=== PATIENT | female | born 1990 | race Caucasian/White ===

== ENCOUNTER 2018-03-14 05:25 | Inpatient (IN) | payer OTHER ==
[2018-03-14] MEDS ORDERED: CITRIC ACID/SODIUM CITRATE 30 ML UNIT-DOSE CUP PO ONE (05:30)
[2018-03-14] MEDS ORDERED: ELECTROLYTE-148 SOLN 500 ML IV ONE (05:30)
[2018-03-14] MEDS ORDERED: ELECTROLYTE-148 SOLN 1,000 ML IV SCH (06:00)
[2018-03-14 06:12] VITALS: BMI 27.8
[2018-03-14] MEDS ORDERED: OXYTOCIN 20 UNITS in 0.9% NS 40 UNIT/2,000 ML INFUS.BAG IV ONE (07:32)
--- NOTE | 2018-03-14 07:34 | HP ---
History & Physical Update - History History: Change (see notes) (27 yrs , 37.4/7 weeks by sono , 38 weeks by dates , previous c/section with Mild cholestasis ( 35 bile acids) , recommended delivery by [facility] Hence pt is admitted for repeat c/sectio) - Physical Physical: No Change - Assessment Assessment: No Change - Plan Plan: No Change Currently as noted:: Repeat LFTC?section 03/14/18
[2018-03-14] MEDS ORDERED: morphine SULFATE/Preservative Free 0.5 MG/ML (1cc Syringe) ONE (07:50)
[2018-03-14] MEDS ORDERED: BUPIVACAINE 0.75% IN DEXTROSE/PF 2ML AMPULE NR ONE (07:51)
[2018-03-14] MEDS ORDERED: OXYTOCIN 10 UNITS/ML VIAL ONE (08:55)
[2018-03-14] MEDS ORDERED: ceFAZolin SODIUM 1 GM VIAL ONE ×2 (08:55→15:58)
[2018-03-14] MEDS ORDERED: ONDANSETRON 4 MG/2 ML VIAL ONE (09:05)
--- NOTE | 2018-03-14 09:08 | PN ---
Delivery - Delivery Section: Repeat, Low Flap Transverse (37.4 weeks, previous c/section , cholestasis of ) Type of Anesthesia: Spinal Episiotomy/Laceration: None EBL (cc): 500 (mitchell output 100 ml ) Delivery, Single - Stages of Labor Date of Delivery: 03/14/18 Time of Delivery: 08:15 Time Placenta Delivered: 08:16 Placenta: Yes: Expressed, Uterine Exploration - Condition of Infant Telephone Services Sales Representative/Stained Glass Glazier Present: Yes Name: Nabor Lange Infant Gender: Female Weight: 5 lb 13 oz Position: Left (cord around body), OT Total Hours ROM (Hrs/Mins): 0/2 - 1 Minute Total Score: 9 5 Minutes Total Score: 9 - [place] Feeding Plan Initial Plan: Elected not to breastfeed exclusively throughout hospitalization Remarks - Remarks Remarks: 27 yrs , 37.4/7 weeks , previous c/section was recommended delivery by M due to cholestasis of ( bile acids 35 ) . PNC at , [facility] gbs neg . Intraop course uneventful
[2018-03-14 09:09] LABS: ARTERIAL BLD GAS O2 SATURATION 16.5 % (90-98.9); ARTERIAL BLOOD GAS BASE EXCESS 0.1 meq/l (-2-2); ARTERIAL BLOOD GAS PCO2 61.3 mmHg (35-45); ARTERIAL BLOOD GAS pH 7.28 (7.35-7.45)
[2018-03-14] MEDS ORDERED: ONDANSETRON 4 MG/2 ML VIAL IVPUSH PRN (09:10)
[2018-03-14 09:14] LABS: VENOUS PC02 47.1 mmHg (38-52); VENOUS PH 7.35 (7.32-7.42)
[2018-03-14 09:15] LABS: VENOUS PO2 25.5 mmHg (28-48)
--- NOTE | 2018-03-14 09:15 | OP ---
Operative Note - Note: Operative Date: 03/14/18 Pre-Operative Diagnosis: 37.4 weeks, previous c/section, cholestasis of Operation: Repeat LFTC/section Findings: 8.13 AM , Baby girl, 9/9 , Wt 5'13", HT18" ,LOT position, cord around body both tubes & ovaries normal Dean : Dr jiang present in the OR Surgeon: Nelda Lauren Spiral Runner: Reese Waldron Anesthesiologist/EDGER LINER: Sukhi Valenzuela Anesthesia: Spinal Specimens Removed: cord blood gas. cord blood. placenta Estimated Blood Loss (mls): 500 Drains, Volume Out (mls): 100 (mitchell out put, srikanth color urine ) Fluid Volume Replaced (mls): 900 (1 gm iv ancef prior to incision )
[2018-03-14] MEDS ORDERED: METHYLERGONOVINE MALEATE 0.2 MG/1 ML AMP IM PRN (09:19)
[2018-03-14] MEDS ORDERED: IBUPROFEN 800 MG/8 ML IJ IVPB PRN (09:19)
[2018-03-14] MEDS ORDERED: SENNOSIDES/DOCUSATE COMBO (SENNA PLUS) TABLET (UD) PO PRN (09:19)
--- NOTE | 2018-03-14 09:58 | OP ---
DATE OF OPERATION: 03/14/2018 PREOPERATIVE DIAGNOSIS: Previous section, 37.4 weeks, cholestasis of . OPERATION DONE: Repeat low flap transverse section. SURGEON: Nelda Lauren MD [employer]PA[employer]ER SURGEON: LYNETTE Power ANESTHESIOLOGIST: Sukhi Valenzuela MD GENERAL ACCOUNTANT: Nabor Lange MD FINDINGS: This is a 27-year-old 2, para 1-0-0-1 with a previous C- section, has diagnosed cholestasis of Bile acids is 35, recommended by Dr. Forbes [facility], to deliver the patient. PROCEDURE: Abdomen was shaved. Jacobs catheter was placed. She was taken to the operating room table. Spinal anesthesia was given. She was placed in supine position. Abdomen was painted and draped in usual manner. Pfannenstiel incision was made through previous scar, and the skin and subcutaneous tissue, anterior rectus sheath were incised transversely. Bleeding points were clamped and cauterized. Rectus muscle was from the rectus sheath. Parietal peritoneum was opened vertically. Lower flap of the peritoneum was incised transversely. Lower uterine segment was incised transversely. Amniotic fluid was clear, and the baby was delivered from LOT position at 8:15 a.m. Baby girl, and baby had the cord around the neck. Immediate oral and nasal suction were done after the delivery of the head , and then cord was clamped, cut. Baby was handed over to the admin assistant. Baby's was 9, 9. The weight is 5 pounds 13 ounces, and height is 18 inches. Cord segment was sent for the cord blood gas, and the cord blood was collected. Placenta was removed completely with the membranes. Uterine cavity was cleaned, and the closure of the uterine incision was done in 2 layers. First layer was closed with a Biosyn 0 suture. Continuous locking sutures were taken. Second layer was a continuous intermittently locking vertical mattress sutures were taken. Hemostasis was checked, and then the bladder peritoneum was closed with a Biosyn 0 suture. Both tubes and ovaries were normal. Sponge and instrument count was correct, and then the closure of the abdomen was done. Parietal peritoneum was closed with Vicryl 0 suture. Muscles were approximated together with Vicryl 0 interrupted sutures, and anterior rectus sheath was closed with Vicryl 0 continuous sutures. Hemostasis was checked and skin was released from underneath scar, and subcutaneous tissue was approximated with interrupted Vicryl 0 suture, then skin was approximated with chapis. A pressure dressing was given. Patient tolerated the procedure well, and she was transferred to the recovery room in stable condition. Estimated blood loss was 500 mL. Intraoperative upper outer was 100 mL, and it was srikanth color, and she received IV Ancef 1 g prior to the incision. Bria SHAIKH/[id number] MTDD
[2018-03-14] MEDS: OXYTOCIN 20 UNITS in 0.9% NS 20 UNIT/1,000 ML INFUS.BAG IV SCH (10:00)
[2018-03-14] MEDS ORDERED: DEXTROSE 5%-WATER - 50 ML IVPB ONE (15:58)
[2018-03-14] MEDS: CEFAZOLIN 1 GM in DEXTROSE 5%-WATER - 50 ML IVPB SCH (16:16)
[2018-03-14] MEDS: ACETAMINOPHEN 325 MG TABLET (FP) PO PRN (20:03)
[2018-03-15] MEDS ORDERED: ceFAZolin SODIUM 1 GM VIAL ONE (01:43)
[2018-03-15] MEDS ORDERED: DEXTROSE 5%-WATER - 50 ML IVPB ONE (01:43)
[2018-03-15] MEDS: CEFAZOLIN 1 GM in DEXTROSE 5%-WATER - 50 ML IVPB SCH (01:46)
[2018-03-15] MEDS ORDERED: oxyCODONE HCL 5 MG TABLET PO PRN ×2 (06:00)
--- NOTE | 2018-03-15 08:09 | PN ---
Post Progress Note - Subjective Subjective: 27 yo Para 2 status post repeat , seen and evaluated. Doing well. Post Day: 1 Type of Delivery: Repeat C/S Vital Signs: Vital Signs Temperature 97.2 F L 03/15/18 07:52 Pulse Rate 65 03/15/18 07:52 Respiratory Rate 18 03/15/18 07:52 Blood Pressure 109/69 03/15/18 07:52 O2 Sat by Pulse Oximetry (%) 100 03/14/18 10:10 Breast Exam: Yes: Soft Uterus: Yes: Fundus @ umbilicus Incision: Yes: Dressing dry and intact Abdomen/GI: Yes: Abdomen soft Lochia: Yes: Rubra Lochia, amount: Small Extremities: Yes: Calves non-tender Activity: Ambulating Problem List - Problems (1) Status post repeat low transverse section Code(s): Z98.891 - HISTORY OF UTERINE SCAR FROM PREVIOUS SURGERY Assessment/Plan Status post repeat Ambulation Analgesia as needed Continue routine post op care
[2018-03-15 08:30] LABS: BASO % 0.5 % (0-2.0); EOS % 0.2 % (0-4.5); HEMATOCRIT 35.9 % (32.4-45.2); HEMOGLOBIN 11.9 GM/dL (10.7-15.3); LYMPH % 12.1 % (8-40); MCH 29.8 pg (25.7-33.7); MCHC 33.2 g/dl (32.0-36.0); MEAN CELL VOLUME 89.8 fl (80-96); MEAN PLT VOLUME 9.5 fl (7.5-11.1); MONO % 5.8 % (3.8-10.2); NEUT % 81.4 % (42.8-82.8); PLATELET COUNT 225 K/MM3 (134-434); WHITE BLOOD COUNT 9.1 K/mm3 (4.0-10.0)
[2018-03-15] MEDS ORDERED: BISACODYL 10 MG SUPP.RECT RC PRN (09:19)
[2018-03-15] MEDS: ENOXAPARIN NA (PORCINE) 40 MG/0.4 ML DISP.SYRIN SQ SCH (09:50)
[2018-03-15] MEDS: ACETAMINOPHEN 325 MG TABLET (FP) PO PRN ×2 (14:38→22:27)
[2018-03-15] MEDS: SIMETHICONE 80 MG TAB.CHEW (FP) PO PRN ×2 (14:38→22:27)
[2018-03-15] MEDS: IBUPROFEN 600 MG TABLET (FP) PO PRN ×2 (14:38→22:27)
[2018-03-15] MEDS: OXYTOCIN 20 UNITS in 0.9% NS 20 UNIT/1,000 ML INFUS.BAG IV SCH (15:46)
[2018-03-16] MEDS: SIMETHICONE 80 MG TAB.CHEW (FP) PO PRN ×2 (09:47→15:01)
[2018-03-16] MEDS: ACETAMINOPHEN 325 MG TABLET (FP) PO PRN (09:47)
[2018-03-16] MEDS: ENOXAPARIN NA (PORCINE) 40 MG/0.4 ML DISP.SYRIN SQ SCH (09:48)
--- NOTE | 2018-03-16 12:17 | PN ---
Post Progress Note - Subjective Subjective: 27 yo Para 2, status post delivery, seen and evaluated. She's out of bed to chair. No complaints. Post Day: 2 Type of Delivery: Repeat C/S Vital Signs: Vital Signs Temperature 98.2 F 03/16/18 07:38 Pulse Rate 62 03/16/18 07:38 Respiratory Rate 18 03/16/18 07:38 Blood Pressure 116/73 03/16/18 07:38 O2 Sat by Pulse Oximetry (%) 100 03/14/18 10:10 Breast Exam: Yes: Soft Uterus: Yes: Fundus Firm Incision: Yes: Dionte intact Abdomen/GI: Yes: Abdomen soft Lochia: Yes: Rubra Lochia, amount: Small Extremities: Yes: Calves non-tender Perineum: Yes: Intact Activity: Ambulating - Labs Labs: CBC WBC 9.1 K/mm3 (4.0-10.0) 03/15/18 07:00 RBC 4.00 M/mm3 (3.60-5.2) 03/15/18 07:00 Hgb 11.9 GM/dL (10.7-15.3) 03/15/18 07:00 Hct 35.9 % (32.4-45.2) 03/15/18 07:00 MCV 89.8 fl (80-96) 03/15/18 07:00 MCH 29.8 pg (25.7-33.7) 03/15/18 07:00 MCHC 33.2 g/dl (32.0-36.0) 03/15/18 07:00 RDW 15.0 % (11.6-15.6) 03/15/18 07:00 Plt Count 225 K/MM3 (134-434) 03/15/18 07:00 MPV 9.5 fl (7.5-11.1) 03/15/18 07:00 Absolute Neuts (auto) 7.4 # 03/15/18 07:00 Neutrophils % 81.4 % (42.8-82.8) 03/15/18 07:00 Lymphocytes % 12.1 % (8-40) D 03/15/18 07:00 Monocytes % 5.8 % (3.8-10.2) 03/15/18 07:00 Eosinophils % 0.2 % (0-4.5) D 03/15/18 07:00 Basophils % 0.5 % (0-2.0) 03/15/18 07:00 Nucleated RBC % 0 % (0-0) 03/15/18 07:00 Problem List - Problems (1) Status post repeat low transverse section Code(s): Z98.891 - HISTORY OF UTERINE SCAR FROM PREVIOUS SURGERY Assessment/Plan Status post Stable Continue post op care
[2018-03-16] MEDS: IBUPROFEN 600 MG TABLET (FP) PO PRN (15:01)
--- NOTE | 2018-03-17 03:54 | PN ---
Post Progress Note - Subjective Subjective: 27 yo Para 2 status post repeat , seen and evaluated. Doing well. No complaints. Post Day: 3 Type of Delivery: Repeat C/S Vital Signs: Vital Signs Temperature 98.3 F 03/16/18 21:54 Pulse Rate 57 L 03/16/18 21:54 Respiratory Rate 18 03/16/18 21:54 Blood Pressure 106/67 03/16/18 21:54 O2 Sat by Pulse Oximetry (%) 100 03/14/18 10:10 Breast Exam: Yes: Soft Uterus: Yes: Fundus Firm Incision: Yes: Dionte intact Abdomen/GI: Yes: Abdomen soft, Tolerating PO Lochia: Yes: Rubra Lochia, amount: Small Extremities: Yes: Calves non-tender Perineum: Yes: Intact Activity: Ambulating - Labs Labs: CBC WBC 9.1 K/mm3 (4.0-10.0) 03/15/18 07:00 RBC 4.00 M/mm3 (3.60-5.2) 03/15/18 07:00 Hgb 11.9 GM/dL (10.7-15.3) 03/15/18 07:00 Hct 35.9 % (32.4-45.2) 03/15/18 07:00 MCV 89.8 fl (80-96) 03/15/18 07:00 MCH 29.8 pg (25.7-33.7) 03/15/18 07:00 MCHC 33.2 g/dl (32.0-36.0) 03/15/18 07:00 RDW 15.0 % (11.6-15.6) 03/15/18 07:00 Plt Count 225 K/MM3 (134-434) 03/15/18 07:00 MPV 9.5 fl (7.5-11.1) 03/15/18 07:00 Absolute Neuts (auto) 7.4 # 03/15/18 07:00 Neutrophils % 81.4 % (42.8-82.8) 03/15/18 07:00 Lymphocytes % 12.1 % (8-40) D 03/15/18 07:00 Monocytes % 5.8 % (3.8-10.2) 03/15/18 07:00 Eosinophils % 0.2 % (0-4.5) D 03/15/18 07:00 Basophils % 0.5 % (0-2.0) 03/15/18 07:00 Nucleated RBC % 0 % (0-0) 03/15/18 07:00 Problem List - Problems (1) Status post repeat low transverse section Code(s): Z98.891 - HISTORY OF UTERINE SCAR FROM PREVIOUS SURGERY Assessment/Plan Status post Stable Continue post op care
[2018-03-17] MEDS: IBUPROFEN 600 MG TABLET (FP) PO PRN ×2 (05:03→17:25)
[2018-03-17] MEDS: ACETAMINOPHEN 325 MG TABLET (FP) PO PRN ×2 (05:04→17:25)
[2018-03-17 08:36] LABS: BASO % 0.9 % (0-2.0); HEMATOCRIT 35.5 % (32.4-45.2); HEMOGLOBIN 11.8 GM/dL (10.7-15.3); LYMPH % 14.7 % (8-40); MCH 29.6 pg (25.7-33.7); MCHC 33.3 g/dl (32.0-36.0); MEAN CELL VOLUME 88.8 fl (80-96); MEAN PLT VOLUME 9.3 fl (7.5-11.1); MONO % 5.6 % (3.8-10.2); NEUT % 77.8 % (42.8-82.8); PLATELET COUNT 239 K/MM3 (134-434); RBC 3.99 M/mm3 (3.60-5.2); RDW 15.4 % (11.6-15.6); WHITE BLOOD COUNT 9.6 K/mm3 (4.0-10.0)
[2018-03-17] MEDS: ENOXAPARIN NA (PORCINE) 40 MG/0.4 ML DISP.SYRIN SQ SCH (09:35)
[2018-03-17] MEDS: SIMETHICONE 80 MG TAB.CHEW (FP) PO PRN (17:25)
[2018-03-17 21:27] VITALS: TEMP 98.2
[2018-03-18 08:04] VITALS: BP 116/59; PULSE 64
[2018-03-18] MEDS: IBUPROFEN 600 MG TABLET (FP) PO PRN (09:10)
[2018-03-18] MEDS: ENOXAPARIN NA (PORCINE) 40 MG/0.4 ML DISP.SYRIN SQ SCH (09:10)
[2018-03-18] MEDS: ACETAMINOPHEN 325 MG TABLET (FP) PO PRN (09:10)
--- NOTE | 2018-03-18 21:09 | DS ---
Physical Exam-CENTRAL SUPPLY NURSE Vital Signs: Vital Signs Temperature 98.2 F 03/18/18 08:03 Pulse Rate 64 03/18/18 08:03 Respiratory Rate 20 03/18/18 08:03 Blood Pressure 116/59 03/18/18 08:03 O2 Sat by Pulse Oximetry (%) 100 03/14/18 10:10 Constitutional: Yes: Well Nourished, Other (pain scale 3/10). No: Pallor Eyes: Yes: WNL HENT: Yes: WNL Neck: Yes: WNL Cardiovascular: Yes: WNL Respiratory: Yes: WNL Gastrointestinal: Yes: WNL, Normal Bowel Sounds, Other (bm done). No: Distention ...Rectal Exam: Yes: WNL Renal/: Yes: WNL, Other (voiding without difficulty). No: CVA Tenderness - Left, CVA Tenderness - Right Pelvis: Yes: WNL External Genitalia: Yes: Normal Internal Exam Deferred: Yes ....Post : Yes: Uterus firm, Uterus non-tender, Moderate lochia rubra ( perineum intact) Breast(s): Yes: WNL (not engorged . BF) Musculoskeletal: Yes: WNL Extremities: Yes: WNL. No: Calf Tenderness Edema: Yes Edema: LLE: Trace, RLE: Trace Integumentary: Yes: Tattoos Wound/Incision: Yes: Clean/Dry, Well Approximated, Steri Strips (applied), Open to air, [place] Removed. No: Draining, Reddened, Bleeding, Excoriated Neurological: Yes: WNL, Alert, Oriented ...Motor Strength: WNL Psychiatric: Yes: WNL, Alert, Oriented Labs: CBC, BMP 03/17/18 07:00 Delivery - Delivery Section: Repeat, Low Flap Transverse (37.4 weeks, previous c/section , cholestasis of ) Type of Anesthesia: Spinal Episiotomy/Laceration: None EBL (cc): 500 (mitchell output 100 ml ) Delivery, Single - Stages of Labor Date of Delivery: 03/14/18 Time of Delivery: 08:15 Time Placenta Delivered: 08:16 Placenta: Yes: Expressed, Uterine Exploration - Condition of Infant Director Project Management/Purse Seiner Present: Yes Name: AnisaNabor Infant Gender: Female Weight: 5 lb 13 oz Position: Left (cord around body), OT Total Hours ROM (Hrs/Mins): 0/2 - 1 Minute Total Score: 9 5 Minutes Total Score: 9 - Feeding Plan Initial Plan: Elected not to breastfeed exclusively throughout hospitalization Remarks - Remarks Remarks: 27 yrs , 37.4/7 weeks , previous c/section was recommended delivery by MFM due to cholestasis of ( bile acids 35 ) . PNC at [address] [place] [address] gbs neg . Intraop course uneventful post op course uneventful discharge 03/18/18 Discharge Summary Reason For Visit: ADMIT-C/S Condition: Stable - Instructions Diet, Activity, Other Instructions: Post Instructions DIET: Continue good diet high in protein, calcium, and iron rich foods. Drink at least eight (8) glasses of water daily in addition to other fluids. Ct Regular diet MEDICATIONS: Continue vitamins and iron as previously directed. Motrin and Tylenol may be taken for minor discomfort. ACTIVITY: Mild to moderate exercise may be started in two (2) weeks. Take frequent rest periods. Resume normal activity after six (6) week check up. WOUND CARE OF OPERATIVE SITE: Continue use of perineal bottle until vaginal discharge stops. Keep area clean. Shower daily. Keep abdominal wound dry. Report any drainage or redness to physician. Tub baths, tampons and douches are not permitted for [address] Breast feeding & or Bottle feeding BREAST CARE: (For those that are not ): If engorgement occurs: Wear tight fitting bra. Take Tylenol or Motrin for pain. Apply cold packs (ice in bags to each breast ) FAMILY PLANNING: There are many control alternatives to pursue and they should be discussed at your first office visit. You may resume sexual activity after your six (6) week check up. (Remember, is not a contraceptive) NEXT PHYSICIAN APPOINTMENT: Be certain to call for a one(1) week appointment, unless otherwise directed. RTC for wound check, & chapis removal. Call Clinic or got to Emergency Dept if you have any of the following: Heavy vaginal bleeding Painful urination Leg pain Unusual odor noted to vaginal bleeding High fever Red streaking noted on breast return to clinic in 1 week for incision check and 6 weeks for check. call for appointment. [phone] Referrals: Nelda Lauren MD [Staff Physician] - Disposition: HOME - Home Medications Comprehensive Discharge Medication List: Ambulatory Orders Vitamins (Sjr) - 1 tab PO DAILY 03/13/18 Ursodiol [Actigall] 300 mg PO DAILY 03/13/18 Acetaminophen [Tylenol .Regular Strength -] 500 mg PO Q4H PRN #30 tablet Ferrous Sulfate [Feosol] 325 mg PO DAILY #0 tab 03/17/18 Ibuprofen [Motrin -] 600 mg PO Q4H PRN #30 tablet 03/17/18
--- NOTE | 2018-03-20 16:56 | PATH ---
Surgical Pathology Report Patient Name: MARTIN ESCAMILLA Med. Rec. #: [id number] /Age/Gender: 1990 (Age: 27) / F Account: [id number] Location: [facility] OBS/REHAB PHYSICIAN Taken: 03/14/2018 Received: 03/17/2018 Reported: 03/20/2018 Physicians: Nelda Lauren M.D. Specimen(s) Received PLACENTA Clinical History P1, G2, cholestasis of , 37.4 weeks, 38 weeks by dates Final Diagnosis PLACENTA: THIRD TRIMESTER PLACENTA. TRIVASCULAR CORD. MEMBRANES WITH NO DIAGNOSTIC ABNORMALITIES. Electronically Signed Krista Ortega M.D. Gross Description The specimen is received fresh labeled placenta and is a 364 gram, 17.0 x 15.0 x 1.7 cm. placenta with attached membranes and umbilical cord. The attached membranes are chakraborty, translucent with focal opacities and insert marginally. The umbilical cord measures 12 cm. in length and averages 1 cm. in diameter. The cord inserts eccentrically, 5 cm. to the nearest margin. No true knots or strictures are identified. Cut surface of the umbilical cord reveals 3 vessels. The surface is becerra-blue with minimal fibrin deposition and appropriate caliber vessels. The maternal surface is red-brown with focal defects. Sectioning reveals red-brown, spongy parenchyma. No lesions are identified. [employer] sections are submitted in three cassettes as follows: 1- membrane rolls and umbilical cord; 2-3- full thickness sections of placenta. 03/18/2018 [facility]03/18/2018
== END 2018-03-18 11:00 | disposition home or self-care (01) | DRG 540 ==
LOC: JLDR 05:25 → J3W 10:30
PROVIDERS: ADMIT Obstetrics & Gynecology; ATTEND Obstetrics & Gynecology
PROC: 10D00Z1 Extraction of Products of Conception, Low, Open Approach (ICD-10-PCS; principal; 2018-03-14)
DX: O34.219 Maternal care for unspecified type scar from previous cesarean delivery (principal); O26.62 Liver and biliary tract disorders in childbirth; K83.1 Obstruction of bile duct; Z3A.37 37 weeks gestation of pregnancy; Z37.0 Single live birth
CPT/HCPCS: 36415; 36600; 71046-TC-FY; 82803; 85025; 88307-TC; 94010